=== PATIENT | female | born 1960 | race Caucasian/White ===

== ENCOUNTER 2020-08-04 14:12 | Emergency (ER) | payer OTHER ==
[2020-08-04 15:34] LABS: HEMOGLOBIN 15.2 gm/dl (12.3-15.3); RED BLOOD COUNT 5.02 M/UL (4.00-5.10); WHITE BLOOD COUNT 6.4 K/UL (4.5-11.0)
[2020-08-04 15:55] LABS: BUN/CREATININE RATIO 16 (0-10)
[2020-08-04] MEDS ORDERED: NAPROSYN500 MG PO (17:25)
== END 2020-08-04 17:52 | disposition home or self-care (01) ==
LOC: ER1 14:12
PROVIDERS: Physician Assistant
DX: K80.20 Calculus of gallbladder without cholecystitis without obstruction (principal)
CPT/HCPCS: 36415; 80053; 81001; 85025; 96374; 99284; J1885; Q9967

== ENCOUNTER → 2021-10-02 | Outpatient (CLI) | payer OTHER ==
[~2021-10-02] MED LIST: NAPROSYN500 MG PO
== END ==
LOC: KOH-I 09-26 10:00
DX: R10.11 Right upper quadrant pain (principal); K80.20 Calculus of gallbladder without cholecystitis without obstruction
CPT/HCPCS: 76705